=== PATIENT | female | born 1960 | race African-American/Black ===

== ENCOUNTER 2017-07-24 16:39 | Emergency (ER) | payer MEDICAID ==
[~2017-07-24] VITALS: Ht 165.1 cm; Wt 55.0 kg
[2017-07-24] MEDS ORDERED: KETOROLAC 60MG/2ML VIAL IM ONE (19:15)
[2017-07-24 19:17] VITALS: BP 139/65
== END 2017-07-24 20:04 | disposition home or self-care (01) ==
LOC: ER 16:55
DX: R51 Headache (principal)
CPT/HCPCS: 96372; 99283; J1885